=== PATIENT | male | born 1970 | race Caucasian/White ===

== ENCOUNTER 2016-11-22 11:31 | Emergency (ER) | payer MEDICAID ==
[~2016-11-22] VITALS: Ht 172.7 cm; Wt 72.1 kg
[~2016-11-22 11:31] MED LIST: AUGMENTIN 875-1 EACH PO; NOMEDS XX; TESSALON PERLE100 M1 PO
--- NOTE | 2016-11-22 11:59 | Emergency Room Report ---
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 N Clinical Suspician of Infection? N Mental Status: 1 - Regular (Normal Baseline) Sepsis Risk:Low Sepsis Risk Have you (or family members/close friends) recently traveled outside the [place]? N If Yes, where/when: Have you had exposure to infectious disease within the past month? N TB? Other? Specify: Comment The patient states that he is having a reaction to Augmentin prescribed yesterday for bronchitis at this emergency department. He requests a change to a different antibiotic. He says that he took one dose and then began having generalized itching. He had redness of the dorsums of his hands, which has resolved. No trouble breathing or swallowing. No previous history of similar drug reaction. ALLERGIES Coded Allergies: amoxicillin (From AUGMENTIN) ("ITCHING MY SKIN OFF" 11/22/16) clavulanic acid (From AUGMENTIN) ("ITCHING MY SKIN OFF" 11/22/16) Home Medications Active Scripts Amoxicillin/Potassium Clav (Augmentin 875-125 Tablet) 1 EACH PO BID #20 TAB Prov: 11/21/16 Benzonatate (Tessalon Perle) 100 MG PO TIDP PRN cough #20 SGL Prov: 11/21/16 History Medical History General CAD? No Angina: No PA: No Hypertension? No Hyperlipidemia? No CHF? No DVT? No PE? No COPD? No Asthma? No Anemia? No GERD? No Gastric ulcers? No GI Bleed? No Hernia? No Thyroid Problems? No Hypothyroidism? No CVA? No Seizures? No Diabetes? No Renal Insuffiency? No End Stage Renal Disease? No UTI? No Stones? No BPH? No GB Disease: No Nephritic Syndrome? No Asplenia? No Hepatitis? No Sickle Cell Disease? No Arthritis? No Migraines? No Cataracts? No Glaucoma? No MRSA? No HIV? No TB? No Anxiety? No Depression? No Cancer? No More? No Immunization Hx DT/Tetanus > 10 Years Ago Surgical Hx Previous Surgery?Y RIGHT LEG MENISCUS Social History Smoking Hx Smoker: Former Smoker Tobacco: No Packs/day < 1 Pack Alcohol Alcohol: No Review of Systems All Other Systems Reviewed and Negative Constitutional denies fever, malaise, other (Weight loss) ENT throat pain. Respiratory cough Gastrointestinal denies diarrhea, denies vomiting Physical Exam Vital Signs Vital Signs Date Time Temp Pulse Resp B/P Pulse O2 O2 Flow FiO2 Ox Delivery Rate 11/22 1137 98.1 83 18 108/72 98 General Appearance normal appearance, WD/WN Eye Exam - bilateral eye normal exam, bilateral eye PERRL, bilateral eye EOMI Ear, Nose, Throat hearing grossly normal, normal ENT inspection, no swelling of lips, tongue, or throat Neck normal inspection, non-tender, supple, full range of motion Respiratory Status Yes: trachea midline, chest symmetrical, non tender chest. No: respiratory distress. Lung Sounds bilateral: normal breath sounds, lungs clear. 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 No Departure Departure Disposition DC Home or Self Care(routine) Clinical Impression Primary Impression: Allergic reaction to Augmentin Condition STABLE Patient Instructions DI for Adverse Drug Reaction -- Allergic Additional Instructions Take Benadryl for itching. Stop taking Augmentin. Start Z-Skyler. Additional instructions for ALLERGIC REACTION: You are being provided with a list of physicians available for follow-up of your condition. Please call a physician on this list to arrange a follow-up appointment as soon as possible. Return immediately if severe intolerable rash or itching, trouble breathing, or faintness. Prescriptions Current Visit Scripts Azithromycin (Zithromycin (Z-SKYLER) 250MG Tab) 250 MG PO DAILY #6 TAB TAKE TWO (2) TABLETS ON DAY 1, THEN ONE (1) TABLET DAY #2 THRU #5 ED Critical Care Critical Care No at 120
--- NOTE | 2016-11-22 11:59 | Emergency Room Report ---
History of Present Illness Time Seen by [id number] Presenting Problem in Triage Pt arrived:Walked Presenting Problem:PT REPORTS HAS HAD ITCHING ALL OF OVER BODY SINCE YESTERDAY AFTER TAKING FIRST DOSE OF AUGMENTIN Onset of symptoms date/time:11/21/16/ or onset unknown for:MEDICAL HX UNKNOWN Treatment Prior to Arrival: [employer] Provided by: Sepsis Risk Assessment: Temp: 98.1 B/P: 108/72 MAP: 84 Pulse: 83 Resp: 18 Recent fever? N Clinical Suspician of Infection? N Mental Status: 1 - Regular (Normal Baseline) Sepsis Risk:Low Sepsis Risk Have you (or family members/close friends) recently traveled outside the [place]? N If Yes, where/when: Have you had exposure to infectious disease within the past month? N TB? Other? Specify: Comment The patient states that he is having a reaction to Augmentin prescribed yesterday for bronchitis at this emergency department. He requests a change to a different antibiotic. He says that he took one dose and then began having generalized itching. He had redness of the dorsums of his hands, which has resolved. No trouble breathing or swallowing. No previous history of similar drug reaction. ALLERGIES Coded Allergies: amoxicillin (From AUGMENTIN) ("ITCHING MY SKIN OFF" 11/22/16) clavulanic acid (From AUGMENTIN) ("ITCHING MY SKIN OFF" 11/22/16) Home Medications Active Scripts Amoxicillin/Potassium Clav (Augmentin 875-125 Tablet) 1 EACH PO BID #20 TAB Prov: 11/21/16 Benzonatate (Tessalon Perle) 100 MG PO TIDP PRN cough #20 SGL Prov: 11/21/16 History Medical History General CAD? No Angina: No [place]: No Hypertension? No Hyperlipidemia? No CHF? No DVT? No PE? No COPD? No Asthma? No Anemia? No GERD? No Gastric ulcers? No GI Bleed? No Hernia? No Thyroid Problems? No Hypothyroidism? No CVA? No Seizures? No Diabetes? No Renal Insuffiency? No End Stage Renal Disease? No UTI? No Stones? No BPH? No GB Disease: No Nephritic Syndrome? No Asplenia? No Hepatitis? No Sickle Cell Disease? No Arthritis? No Migraines? No Cataracts? No Glaucoma? No MRSA? No HIV? No TB? No Anxiety? No Depression? No Cancer? No More? No Immunization Hx DT/Tetanus > 10 Years Ago Surgical Hx Previous Surgery?Y RIGHT LEG MENISCUS Social History Smoking Hx Smoker: Former Smoker Tobacco: No Packs/day < 1 Pack Alcohol Alcohol: No Review of Systems All Other Systems Reviewed and Negative Constitutional denies fever, malaise, other (Weight loss) ENT throat pain. Respiratory cough Gastrointestinal denies diarrhea, denies vomiting Physical Exam Vital Signs Vital Signs Date Time Temp Pulse Resp B/P Pulse O2 O2 Flow FiO2 Ox Delivery Rate 11/22 1137 98.1 83 18 108/72 98 General Appearance normal appearance, WD/WN Eye Exam - bilateral eye normal exam, bilateral eye PERRL, bilateral eye EOMI Ear, Nose, Throat hearing grossly normal, normal ENT inspection, no swelling of lips, tongue, or throat Neck normal inspection, non-tender, supple, full range of motion Respiratory Status Yes: trachea midline, chest symmetrical, non tender chest. No: respiratory distress. Lung Sounds bilateral: normal breath sounds, lungs clear. 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 No Departure Departure Disposition DC Home or Self Care(routine) Clinical Impression Primary Impression: Allergic reaction to Augmentin Condition STABLE Patient Instructions DI for Adverse Drug Reaction -- Allergic Additional Instructions Take Benadryl for itching. Stop taking Augmentin. Start Z-Skyelr. Additional instructions for ALLERGIC REACTION: You are being provided with a list of physicians available for follow-up of your condition. Please call a physician on this list to arrange a follow-up appointment as soon as possible. Return immediately if severe intolerable rash or itching, trouble breathing, or faintness. Prescriptions Current Visit Scripts Azithromycin (Zithromycin (Z-SKYLER) 250MG Tab) 250 MG PO DAILY #6 TAB TAKE TWO (2) TABLETS ON DAY 1, THEN ONE (1) TABLET DAY #2 THRU #5 ED Critical Care Critical Care No at 120
[2016-11-22] MEDS ORDERED: ZITHROMAX Z PA250 MG PO (12:04)
[2016-11-22 12:22] VITALS: BP 108/72
== END 2016-11-22 12:22 | disposition home or self-care (01) ==
LOC: ER 11:31
DX: L29.9 Pruritus, unspecified (principal); T36.0X5A Adverse effect of penicillins, initial encounter